=== PATIENT | female | born 1985 | race Caucasian/White ===

== ENCOUNTER → 2018-01-19 01:11 | Outpatient (CLI) | payer BC, SELFPAY ==
[2018-01-19 17:17] LABS: HCG Quant, Pregnancy 17688 mIU/mL (1-3)
== END ==
PROVIDERS: PCP Nurse Practitioner Family; Visit Provider Advanced Practice Midwife
DX: O20.8 Other hemorrhage in early pregnancy (principal); O09.891 Supervision of other high risk pregnancies, first trimester
CPT/HCPCS: 36415; 90384; 84702

== ENCOUNTER 2018-02-28 10:40 | Outpatient (CLI) | payer OTHER, SELFPAY ==
[2018-02-28 12:59] LABS: HCG Quant, Pregnancy 4 mIU/mL (1-3)
== END 2018-02-28 11:00 ==
PROVIDERS: PCP Nurse Practitioner Family; Visit Provider Advanced Practice Midwife
DX: O03.9 Complete or unspecified spontaneous abortion without complication (principal)
CPT/HCPCS: 36415; 84702

== ENCOUNTER 2018-05-30 00:39 | Outpatient (CLI) | payer MEDICAID, SELFPAY ==
--- NOTE | 2018-05-30 08:19 | DI.US_ITS ---
SYMPTOM/DIAGNOSIS: TWIN 030.009 OB ULTRASOUND: There are no prior comparison exams. Two gestational sacs are noted within the uterus. There is significant discrepancy in size of the sac. The crown/rump length measurements of Fetus A corresponds to 9 weeks 5 days. The gestational sac of Fetus B is quite small. There is a small pole corresponding to 6 weeks 1 day without cardiac activity, consistent with demise. IMPRESSION: Twin gestation with demise of one of the twins. Cardiac activity and normal growth is seen of the remaining twin. Many abnormalities cannot be diagnosed. A normal exam does not exclude a congenital anomaly. Radiology No.[id number] LMP: 03/24/18 Exam Date: 05/30/18 [facility] wks days on EDC ([facility]) 12/29/18 Confirmed: HISTORY: 2 GEST SACS SEEN [facility]. 1 POLE, 2-3 WEEKS BEHIND ---- PREDICTED GESTATIONAL AGE NUMBER 9 +4 weeks with a range of 8 +4 week to 10 +4 weeks. 2 Determined by___1STUS_XX__LMP___HISTORY Info. pertaining to fetus # A PLACENTA PRESENTATION Grade Cephalic___ Anterior___Posterior___ Breech____ Right Left Transverse(head right___ Fundal___Low-lying___Previa___ Transverse(head left___ Varying__XX____ BIOMETRY AMNIOTIC FLUID BPD: mm weeks Normal HC: mm weeks AC: mm weeks FL: mm weeks AMNIOTIC FLUID INDEX >26 WK CRL: 29 mm 9 +5 weeks Cisterna Magna: mm CI: RUQ: LUQ Cerebellum: cm EFW: grams Percentile RLQ: LLQ Total: cms Composite AGE= 9 +5 wks EDC by US__12/29/18 BIOPHYSICAL PROFILE ANATOMY IDENTIFIED SCORE 0/2 Heart: 4-Chamber___Rate:BPM_158 BPM____ LVOT: RVOT: Amniotic Fluid(>2cms)____ Stomach: Kidneys: Respirations (>30 secs) Bladder: Post. Fossa: Body Flex/Extension 3 vessel cord: Ventricles: cord insertion: Lips:____ Extremity Flex/Extension spinal morphology: Nose: Total Score= Palate: NS=not seen Many abnormalities cannot be diagnosed. A normal exam does not exclude a congenital anomaly. Radiology No. [id number] LMP: 03/24/18 Exam Date: 05/07 [facility] wks days on EDC ([facility]) 12/29/18 Confirmed: HISTORY: 2 GEST SACS SEEN [facility] 1 POLE 2-3 WEEKS BEHIND ---- PREDICTED GESTATIONAL AGE NUMBER 9 +4 weeks with a range of 8 +4 week to 10 +4 weeks. 2 Determined by___1STUS__XX_LMP___HISTORY Info. pertaining to fetus # B PLACENTA PRESENTATION Grade Cephalic___ Anterior___Posterior___ Breech____ Right Left Transverse(head right___ Fundal___Low-lying___Previa___ Transverse(head left___ Varying BIOMETRY AMNIOTIC FLUID BPD: mm weeks Normal HC: mm weeks Oligo Polyhydramnios AC: mm weeks FL: mm weeks AMNIOTIC FLUID INDEX >26 WK CRL: 4.2 mm 6 +1 weeks NO CHANGE SINCE PRIOR. Cisterna Magna: mm CI: RUQ: LUQ Cerebellum: cm EFW: grams Percentile RLQ: LLQ Total: cms Composite AGE= wks EDC by US BIOPHYSICAL PROFILE ANATOMY IDENTIFIED SCORE 0/2 Heart: 4-Chamber___Rate:BPM_ NO FHT____ LVOT: RVOT: Amniotic Fluid(>2cms)____ Stomach: Kidneys: Respirations (>30 secs) Bladder: Post. Fossa: Body Flex/Extension 3 vessel cord: Ventricles: cord insertion: Lips:____ Extremity Flex/Extension spinal morphology: Nose: Total Score= Palate: NS=not seen
== END 2018-05-30 00:59 ==
PROVIDERS: PCP Obstetrics & Gynecology; Visit Provider Obstetrics & Gynecology
DX: O31.11X2 Continuing pregnancy after spontaneous abortion of one fetus or more, first trimester, fetus 2 (principal); O30.001 Twin pregnancy, unspecified number of placenta and unspecified number of amniotic sacs, first trimester
CPT/HCPCS: 76801; 76802

== ENCOUNTER 2018-07-03 11:33 | Outpatient (CLI) | payer OTHER, MEDICAID, SELFPAY ==
[2018-07-03 12:11] LABS: Abs Immature Grans 0.05 k/cumm (0.0-0.09); Absolute Basophil Count 0.03 k/cumm (0.0-0.2); Absolute Eosinophil Count 0.08 k/cumm (0.0-0.7); Absolute Lymphocyte Count 2.23 k/cumm (1.2-3.4); Absolute Monocyte Count 0.67 k/cumm (0.11-0.7); Absolute Neutrophil Count 7.64 k/cumm (1.2-6.7); Basophils % 0.3; Eosinophils % 0.7; HCT 38.6 % (36.0-46.0); HGB 13.9 g/dL (12.0-15.5); Immature Grans % 0.5; Lymphocytes % 20.8; Mean Corpuscular Hemoglobin 33.3 pg (27.0-33.0); Mean Corpuscular Volume 92.6 fL (80-95); Mean Platelet Volume 10.2 fL (8.0-11.0); Monocytes % 6.3; Neutrophils % 71.4; Platelet Count 216 x1000/uL (130-400); RBC 4.17 m/cumm (4.00-5.20); RBC Distribution Width 13.6 % (11.7-14.6)
[2018-07-03 15:51] LABS: *AMPHETAMINES SCREEN URINE Negative (Negative); *BARBITURATES SCREEN URINE Negative (Negative); *BENZODIAZEPINES SCREEN URINE Negative (Negative); Cannabinoids THC Negative (Negative); Cocaine Screen,Urine Negative (Negative); METHADONE URINE SCREEN Negative (Negative); OPIATES URINE SCREEN Negative (Negative)
[2018-07-03 16:13] LABS: Tricyclic Antidepressants Negative (Negative)
[2018-07-04 10:48] LABS: Rubella IgG Ab (UVM) Positive; Syphilis Serology (RPR) Negative (Negative); Varicella IgG Antibody Positive
[2018-07-04 10:50] LABS: Hepatitis B Surface Ag Negative (NEGAT)
[2018-07-04 11:03] LABS: HIV-1/2 Ag & Ab Screen Negative (NEGAT)
[2018-07-04 11:08] LABS: Hepatitis C Ab w Rflx HCV PCR Negative (NEGAT)
[2018-07-07 11:57] LABS: Buprenorphine Negative; Norbuprenorphine Negative
== END 2018-07-03 11:53 ==
PROVIDERS: PCP Obstetrics & Gynecology; Visit Provider Advanced Practice Midwife
DX: Z34.91 Encounter for supervision of normal pregnancy, unspecified, first trimester (principal); Z11.4 Encounter for screening for human immunodeficiency virus [HIV]; Z11.59 Encounter for screening for other viral diseases; Z11.3 Encounter for screening for infections with a predominantly sexual mode of transmission; Z01.84 Encounter for antibody response examination
CPT/HCPCS: 36415; 80055; 80307; 86787; 86803; 86850; 86900; 86901; 87340; 87389; 86592; 86762; 87086

== ENCOUNTER 2018-07-17 10:21 | Outpatient (REF) | payer OTHER, MEDICAID, SELFPAY ==
--- NOTE | 2018-07-17 09:15 | PAPFT_PTH ---
PATIENT: Mimi Valencia LOC: [facility] U#:[id number] AGE/SX: 33/F ROOM: RE07/17/[address]: Malia Atkinson RN : 1985 BED: DIS: 07/17/2018 SPEC #: [id number] RECD: 07/17/18 12:56 STATUS: ROBBY DICKEY #: [id number] LESIA: 07/17/18 09:[address]: Malia Atkinson DEPT: [facility] Cytology RECD BY: Indigo Jones ENTERED: 07/17/18 12:56 SP TYPE: PAPFT FLORENCIA DR: Yun Romo MD Tissues: 1 - CX/ENDOCX FOR PAP SMEARS Procedures: PAP THIN PREP/UVM Screening HPV DNA PROBE Comments: [id number]
[2018-07-18 14:50] LABS: Chlamydia Result Negative; GC Result Negative; Specimen Description CERVIX
== END 2018-07-17 10:41 ==
LOC: LBN 10:21
PROVIDERS: PCP Obstetrics & Gynecology; Visit Provider Advanced Practice Midwife
DX: Z34.91 Encounter for supervision of normal pregnancy, unspecified, first trimester (principal); Z11.3 Encounter for screening for infections with a predominantly sexual mode of transmission; Z12.4 Encounter for screening for malignant neoplasm of cervix; Z11.51 Encounter for screening for human papillomavirus (HPV)
CPT/HCPCS: 87491; 87591; 88142; 87624

== ENCOUNTER 2018-07-31 01:37 | Outpatient (CLI) | payer OTHER, MEDICAID, SELFPAY ==
--- NOTE | 2018-07-31 09:02 | DI.US_ITS ---
SYMPTOM/DIAGNOSIS: 18 WEEK SONO FOR ANATOMY, WEEK OF JUL 31 OBSTETRICAL ULTRASOUND: Routine examination. There is a single living intrauterine gestation, estimated sonographic age is 18 weeks 6 days. No or placental abnormalities are identified. Many abnormalities cannot be diagnosed. A normal exam does not exclude a congenital anomaly. Radiology No. [id number] LMP: Exam Date: 07.31.18 [facility] wks days on EDC ([facility]) 12/27/18 Confirmed: HISTORY: SURVEY PREDICTED GESTATIONAL AGE NUMBER 18 +5 weeks with a range of 17 +5 week to 19 +5 weeks. 1 Determined by___1STUS___LMP___HISTORY Info. pertaining to fetus # PLACENTA PRESENTATION Grade I Cephalic___ Anterior_XX__Posterior___ Breech____ Right Left Transverse(head right___ Fundal___Low-lying___Previa___ Transverse(head left___ Varying___XX___ BIOMETRY AMNIOTIC FLUID BPD: 42 mm 18 +6 weeks Normal HC:161 mm 19 - weeks AC: 132 mm 18 +5 weeks FL: 29 mm 19 - weeks AMNIOTIC FLUID INDEX >26 WK CRL: mm weeks Cisterna Magna: 3.6 mm CI: 83 RUQ: LUQ Cerebellum: 1.95 cm EFW: 259 grams 52% Percentile RLQ: LLQ Total: cms Composite AGE= 18 +6 wks EDC by US__12/26/18 BIOPHYSICAL PROFILE ANATOMY IDENTIFIED SCORE 0/2 Heart: 4-Chamber_X__Rate:BPM__168 BPM___ LVOT:__X RVOT:___X Amniotic Fluid(>2cms)____ Stomach:__X Kidneys:___X____ Respirations (>30 secs) Bladder:___X Post. Fossa:___X Body Flex/Extension 3 vessel cord:__X Ventricles:__X cord insertion:__X___ Lips:__X__ Extremity Flex/Extension spinal morphology:_X Nose:X Total Score= Palate:_X NS=not seen
== END 2018-07-31 01:57 ==
PROVIDERS: PCP Obstetrics & Gynecology; Visit Provider Advanced Practice Midwife
DX: Z34.92 Encounter for supervision of normal pregnancy, unspecified, second trimester (principal)
CPT/HCPCS: 76805; 87480; 87510; 87660

== ENCOUNTER 2018-10-12 07:48 | Outpatient (CLI) | payer MEDICAID, SELFPAY ==
[2018-10-12 09:23] LABS: HCT 36.3 % (36.0-46.0); HGB 12.8 g/dL (12.0-15.5); Mean Corp. HGB Concentration 35.3 g/dL (32.0-36.0); Mean Corpuscular Hemoglobin 33.4 pg (27.0-33.0); Mean Corpuscular Volume 94.8 fL (80-95); Mean Platelet Volume 9.8 fL (8.0-11.0); Platelet Count 231 x1000/uL (130-400); RBC 3.83 m/cumm (4.00-5.20); RBC Distribution Width 13.2 % (11.7-14.6); White Blood Cell Count 10.15 k/cumm (4.4-10.8)
[2018-10-12 09:34] LABS: Glucose,1 Hr (Glucola) 64 mg/dL (80-140)
[2018-10-12 10:40] LABS: TSH (W/Ref FT4) 1.61 uIU/mL (0.358-3.74)
== END 2018-10-12 08:08 ==
PROVIDERS: Advanced Practice Midwife; PCP Obstetrics & Gynecology; Visit Provider Advanced Practice Midwife
DX: Z34.93 Encounter for supervision of normal pregnancy, unspecified, third trimester (principal); Z01.84 Encounter for antibody response examination
CPT/HCPCS: 36415; 81511; 82950; 85027; 86850; 90384; 84443

== ENCOUNTER 2018-11-30 00:48 | Outpatient (CLI) | payer MEDICAID, SELFPAY ==
--- NOTE | 2018-11-30 14:59 | DI.US_ITS ---
SYMPTOM/DIAGNOSIS: S</=D Z34.90 SUPERVISION NORMAL OBSTETRICAL ULTRASOUND: Routine examination was performed. There is a single living intrauterine gestation. Estimated sonographic age is 35 weeks 5 days. The fetus is in the cephalic presentation. heart rate is 126 BPM. Estimated weight is 2704 grams which is the 35th percentile. anatomic evaluation was not performed at this time. Amniotic fluid index is 11.7 cm. Visually the amniotic fluid appears within normal limits. Placenta is anterior and unremarkable. Predicted Gestational Age: Indication/History: 36 +1 Wks Range: 35 +1 to 37 +1 Prior US done on: Determined by: First US LMP History EDC by prior US: 12/27/18 For multiple gestations: Baby PLACENTA: Grade: II Location: XX Anterior PRESENTATION: Cephalic XX Trans (Head RT LT ) Varied Breech BIOMETRY: Anatomy Identified: BPD: 88 mm 35 +3 wks 4 chamber Heart Heart Rate 126 BPM HC: 320 mm 36 wks LVOT Post Fossa AC: 311 mm 35 wks RVOT Ventricles FL: 71 mm 36 +3 wks Stomach Nose Bladder Lips Cisterna Magna: -- mm 82 CI: Kidneys Palate Cerebellum: -- mm 3 vessel cord Spine EFW: 2704 grms 35 % Cord Insertion NS= not seen Composite Age (US) 35 +5 wks Many abnormalities cannot be diagnosed. A normal exam does not exclude congenital abnormality. EDC by US 12/30/18 Amniotic Fluid Index: Normal COMMENTS: RUQ: 3.7 LUQ: 2.9 RLQ: 2.7 LLQ: 2.5 Total: 11.7 cm Biophysical Profile: Score 0/2 HECTOR (>2cm) Respirations (>30 sec) Body flexion/extension Extremity flexion/extension TOTAL SCORE
== END 2018-11-30 01:08 ==
PROVIDERS: PCP Obstetrics & Gynecology; Visit Provider Advanced Practice Midwife
DX: Z34.93 Encounter for supervision of normal pregnancy, unspecified, third trimester (principal); O26.843 Uterine size-date discrepancy, third trimester
CPT/HCPCS: 76816

== ENCOUNTER 2018-12-06 11:16 | Outpatient (REF) | payer MEDICAID, SELFPAY | END 2018-12-06 11:36 | LOC: LBN 11:16 | PROVIDERS: PCP Obstetrics & Gynecology; Visit Provider Advanced Practice Midwife | DX: Z34.93 Encounter for supervision of normal pregnancy, unspecified, third trimester (principal); Z36.85 Encounter for antenatal screening for Streptococcus B | CPT/HCPCS: 87081 ==

== ENCOUNTER 2018-12-20 09:37 | Outpatient (CLI) | payer MEDICAID, SELFPAY | END 2018-12-20 09:57 | PROVIDERS: PCP Obstetrics & Gynecology; Visit Provider Advanced Practice Midwife | DX: O36.8130 Decreased fetal movements, third trimester, not applicable or unspecified (principal); Z3A.35 35 weeks gestation of pregnancy | CPT/HCPCS: 59025 ==

== ENCOUNTER 2018-12-25 10:23 | Outpatient (CLI) | payer MEDICAID, SELFPAY | END 2018-12-25 10:43 | PROVIDERS: PCP Obstetrics & Gynecology; Visit Provider Advanced Practice Midwife | DX: O36.8130 Decreased fetal movements, third trimester, not applicable or unspecified (principal); Z3A.39 39 weeks gestation of pregnancy | CPT/HCPCS: 59025 ==

== ENCOUNTER 2018-12-29 22:00 | Inpatient (IN) | payer MEDICAID, SELFPAY ==
[2018-12-30 01:43] LABS: HCT 41.7 % (36.0-46.0); HGB 14.6 g/dL (12.0-15.5); Mean Corpuscular Volume 94.3 fL (80-95); Mean Platelet Volume 11.2 fL (8.0-11.0); Platelet Count 198 x1000/uL (130-400); RBC 4.42 m/cumm (4.00-5.20); RBC Distribution Width 13.2 % (11.7-14.6); White Blood Cell Count 14.22 k/cumm (4.4-10.8)
[2018-12-30] MEDS: Ibuprofen 600 MG TAB PO ×3 (04:09→18:05)
[2018-12-30] MEDS: Hamamelis Leaf/Glycerin 100 EACH BOX PR (07:34)
[2018-12-30] MEDS: Acetaminophen 325 MG TAB 650 MG PO ×2 (10:40→18:04)
[2018-12-31 08:02] LABS: HCT 39.1 % (36.0-46.0); HGB 13.5 g/dL (12.0-15.5); Mean Corp. HGB Concentration 34.5 g/dL (32.0-36.0); Mean Corpuscular Hemoglobin 33.5 pg (27.0-33.0); Mean Platelet Volume 10.8 fL (8.0-11.0); Platelet Count 172 x1000/uL (130-400); RBC 4.03 m/cumm (4.00-5.20); RBC Distribution Width 13.5 % (11.7-14.6); White Blood Cell Count 12.29 k/cumm (4.4-10.8)
[2018-12-31] MEDS: Ibuprofen 600 MG TAB PO (08:05)
[2018-12-31] MEDS: Acetaminophen 325 MG TAB 650 MG PO (08:05)
== END 2018-12-31 14:45 | disposition home or self-care (01) | DRG 807 ==
PROVIDERS: Admitting Provider Advanced Practice Midwife; PCP Obstetrics & Gynecology; Visit Provider Advanced Practice Midwife
DX: O69.81X0 Labor and delivery complicated by cord around neck, without compression, not applicable or unspecified (principal); Z37.0 Single live birth; Z3A.40 40 weeks gestation of pregnancy; O70.0 First degree perineal laceration during delivery; O26.893 Other specified pregnancy related conditions, third trimester; Z67.41 Type O blood, Rh negative
CPT/HCPCS: 36415; 85027; 85461; 86850; 86900; 86901; 90384; 86870; G0378; J2790; J3490

== ENCOUNTER 2019-02-05 12:39 | Outpatient (CLI) | payer MEDICAID, SELFPAY ==
[2019-02-05 13:32] LABS: Abs Immature Grans 0.01 k/cumm (0.0-0.09); Absolute Basophil Count 0.02 k/cumm (0.0-0.2); Absolute Eosinophil Count 0.21 k/cumm (0.0-0.7); Absolute Lymphocyte Count 3.15 k/cumm (1.2-3.4); Absolute Monocyte Count 0.61 k/cumm (0.11-0.7); Absolute Neutrophil Count 5.11 k/cumm (1.2-6.7); Basophils % 0.2; Eosinophils % 2.3; HCT 43.3 % (36.0-46.0); HGB 15.1 g/dL (12.0-15.5); Immature Grans % 0.1; Lymphocytes % 34.6; Mean Corp. HGB Concentration 34.9 g/dL (32.0-36.0); Mean Corpuscular Hemoglobin 32.6 pg (27.0-33.0); Mean Corpuscular Volume 93.5 fL (80-95); Mean Platelet Volume 10.3 fL (8.0-11.0); Monocytes % 6.7; Neutrophils % 56.1; Platelet Count 225 x1000/uL (130-400); RBC 4.63 m/cumm (4.00-5.20); RBC Distribution Width 12.1 % (11.7-14.6); White Blood Cell Count 9.11 k/cumm (4.4-10.8)
--- NOTE | 2019-02-05 13:45 | DI.US_ITS ---
SYMPTOMS/DIAGNOSIS: HEMORRHAGE, O72.1, ? RETAINED PRODUCTS OF CONCEPTION PELVIC ULTRASOUND: Pelvic ultrasound was performed transabdominally and transvaginally. Please see the accompanying data sheet for measurements of the pelvic structures. The uterus is unremarkable with a normal appearance of the endometrial stripe at 5 mm. No evidence of retained products of conception. Ovaries have a normal follicular appearance. No free fluid identified in the cul-de-sac. CONCLUSION: Negative pelvic ultrasound. Limited scanning of the kidneys was also performed and is unremarkable.
== END 2019-02-05 12:59 ==
PROVIDERS: Visit Provider Advanced Practice Midwife
DX: O72.1 Other immediate postpartum hemorrhage (principal)
CPT/HCPCS: 76830; 76856; 85025

== ENCOUNTER 2019-06-21 11:19 | Outpatient (REF) | payer MEDICAID, SELFPAY ==
[2019-06-21 21:07] LABS: HCT 39.6 % (36.0-46.0); HGB 13.8 g/dL (12.0-15.5); Mean Corp. HGB Concentration 34.8 g/dL (32.0-36.0); Mean Corpuscular Hemoglobin 32.2 pg (27.0-33.0); Mean Corpuscular Volume 92.3 fL (80-95); Mean Platelet Volume 10.8 fL (8.0-11.0); Platelet Count 221 x1000/uL (130-400); RBC 4.29 m/cumm (4.00-5.20); RBC Distribution Width 13.3 % (11.7-14.6)
[2019-06-21 21:28] LABS: Glucose 79 mg/dL (74-106); TSH (W/Ref FT4) 1.43 uIU/mL (0.36-3.74)
== END 2019-06-21 11:39 ==
LOC: NCHCN 11:19
PROVIDERS: PCP Family Medicine; Visit Provider Family Medicine
DX: R53.83 Other fatigue (principal)
CPT/HCPCS: 82947; 85027; 84443

== ENCOUNTER 2020-07-09 04:08 | Outpatient (CLI) | payer MEDICAID, SELFPAY ==
[2020-07-09 14:05] LABS: TSH (W/Ref FT4) 2.09 uIU/mL (0.36-3.74)
== END 2020-07-09 04:28 ==
PROVIDERS: PCP Family Medicine; Visit Provider Nurse Practitioner Family
DX: N92.6 Irregular menstruation, unspecified (principal)
CPT/HCPCS: 36415; 84443

== ENCOUNTER 2021-06-23 15:37 | Outpatient (REF) | payer BC, MEDICAID, SELFPAY ==
--- NOTE | 2021-06-23 14:00 | PAPFT_PTH ---
PATIENT: Mimi Valencia LOC: [facility] U#:[id number] AGE/SX: 35/F ROOM: RE06/23/[address]: POLLO Russell : 1985 BED: DIS: 06/23/2021 SPEC #: [id number] RECD: 06/23/21 18:13 STATUS: ROBBY RECarmen #: [id number] LESIA: 06/23/21 14:[address]: Candy Durham DEPT: [facility] Cytology RECD BY: Indigo Jones ENTERED: 06/23/21 18:13 SP TYPE: PAPFT OTHR DR: Constance Faye V Tissues: 1 - CX/ENDOCX FOR PAP SMEARS Procedures: PAP THIN PREP/UVM Screening HPV DNA PROBE Comments: [id number]
== END 2021-06-23 15:38 | disposition home or self-care (01) ==
LOC: LBN 15:37
PROVIDERS: PCP Family Medicine; Visit Provider Nurse Practitioner Family
DX: Z12.4 Encounter for screening for malignant neoplasm of cervix (principal); Z11.51 Encounter for screening for human papillomavirus (HPV)
CPT/HCPCS: 88142; 87624